=== PATIENT | male | born 1950 | race Caucasian/White ===

== ENCOUNTER 2025-01-04 15:31 | Emergency (ER) | payer MEDICARE, OTHER, SELFPAY ==
[2025-01-04 15:38] VITALS: BP 133/81; PULSE 65; RESP 18; TEMP 36.6; O2SAT 95; BMI 40.4
--- NOTE | 2025-01-04 15:51 | ECG_ITS ---
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 Measurements Intervals [place] Rate: 57 P: 2 MA: 184 QRS: -37 QRSD: 101 T: -1 QT: 411 QTc: 403 Interpretive Statements SINUS BRADYCARDIA LEFT AXIS DEVIATION [QRS AXIS < -30] PATTERN CONSISTENT WITH PULMONARY DISEASE No previous ECG available for comparison Electronically Signed On 01-07-2025 09:24:49 CDT by Antolin Ruff M.D. [email or web address]
--- NOTE | 2025-01-04 16:00 | ED_ITS ---
HPI - Dizziness 2 General: Chief Complaint: Dizziness Stated Complaint: vertigo/rash/back pain Time Seen by Provider: 01/04/25 16:00 History of Present Illness: HPI Narrative: 74-year-old male presents to the emergen cy room with 2 issues 1 he is having dizziness he was seen a couple days ago and given meclizine 40 no sooner he moves his head changes body position he gets dizziness to begin shortly after he moves. It will resolve with time. He has not any difficulty speech swallowing or vision. Second issue is he has a rash that is noticed on the left side of his abdomen. It is very limited rash it stops at the middle of his body. It is a burning type pain has been very pruritic initially had blistering does have opened up mostly and drained fluid. He had a low-grade fever yesterday he denies any cough or shortness of breath Associated symptoms: Denies chest pain or chills Related Data Previous Rx's ?Medication ?Instructions ?Recorded lorazepam 1 mg tablet (Ativan) 1 mg PO TID PRN dizzine ss #14 tabs 01/04/25 valacyclovir 1 gram tablet 1,000 mg PO TID 14 days #42 tabs 01/04/25 (Valtrex) Allergies Allergy/AdvReac Type Severity Reaction Status Date / Time No Known Allergies Allergy Verified 01/04/25 15:45 Review of Systems 2 Const: Reports: fever(s) (Low-grade subjective); Denies: chills Card: Denies: chest pain Resp: Denies: dyspnea GI: Denies: abdominal pain : Denies: dysuria, urinary frequency or urinary urgency Musc: Denies: neck pain or back pain Skin/Breast: Reports: rash Physical Exam 2 Const: COMMON NORMALS: no acute distress GENERAL APPEARANCE: cooperative and comfortable ORIENTATION/CONSCIOUSNESS: Yes awake, Yes oriented to person, Yes oriented to place and Yes oriented to time HENMT: COMMON NORMALS: normocephalic, atraumatic and hearing grossly normal bilaterally HEAD & SCALP: normocephalic and atraumatic Resp: COMMON NORMALS: normal respiratory effort, No retractions, No use of accessory muscles and clear to auscultation bilaterally AUSCULTATION: clear to auscultation bilaterally Cardio: COMMON NORMALS: regular rate, regular rhythm and No murmurs present (Cardio) RATE: regular rate RHYTHM: regular rhythm GI: COMMON NORMALS: Soft to palpation and No hepatosplenomegaly present A USCULTATION: Yes normoactive bowel sounds PALPATION: Yes Soft to palpation, No Tenderness to palpation present (GI), No Guarding due to palpation present (GI) and Yes No hepatosplenomegaly present Extremity: COMMON NORMALS: normal to inspection, capillary refill normal, no clubbing, cyanosis or edema, no calf tenderness and no pedal edema Neuro: SENSORIUM/ORIENTATION: Yes oriented to person, Yes oriented to place and Yes oriented to time Skin: OTHER: Dermatomal rash T7-8 distribution stops at the midline the back and anteriorly. Few vesicles laterally most of them have deroofed and are open no dried crust yet Course 2 Vital Signs: Vital signs: Vital Signs Temperature 98 F 01/04/25 15:38 Pulse Rate 55 L 01/04/25 17:12 Respiratory Rate 18 01/04/25 15:38 Blood Pressure 120/78 01/04/25 17:12 Pulse Oximetry 94 01/04/25 17:12 MDM - Dizziness Medical Decision Making Dizziness is reproducible with change in position of the head he does have some mild nystagmus to the right. Varicella rash also noted that began in the last few days we will start him on acyclovir gave him Ativan to use instead of active meclizine for the positional vertigo follow-up with primary care. Ambulates without difficulty Lab Data 01/04/25 16:19 01/04/25 16:19 Laboratory Results WBC 6.99 10^3/uL (3.29-11.43) 01/04/25 16:19 RBC 4.86 10^6/uL (3.85-5.65) 01/04/25 16:19 Hgb 13.50 g/dL (11.27-16.99) 01/04/25 16:19 Hct 43.1 % (37-53) 01/04/25 16:19 MCV 88.7 fl (82-101) 01/04/25 16:19 MCH 27.8 pg (27-33) 01/04/25 16:19 MCHC 31.3 g/dL (30-55) 01/04/25 16:19 RDW 13.9 % (12.1-15.1) 01/04/25 16:19 Plt Count 218 10^3/cmm (157-399) 01/04/25 16:19 MPV 10.5 fL (7.4-10.4) H 01/04/25 16:19 Neut % (Auto) 51.5 % 01/04/25 16:19 Lymph % (Auto) 26.2 % 01/04/25 16:19 [place] % (Auto) 12.9 % 01/04/25 16:19 Eos % (Auto) 7.7 % 01/04/25 16:19 Baso % (Auto) 1.1 % 01/04/25 16:19 Neut # (Auto) 3.60 10^3/uL (1.8-7.7) 01/04/25 16:19 Lymph # (Auto) 1.8 10^3/uL (0.8-4.8) 01/04/25 16:19 [place] # (Auto) 0.9 10^3/uL (0.2-0.9) 01/04/25 16:19 Eos # (Auto) 0.5 10^3/uL (0.0-0.8) 01/04/25 16:19 Baso # (Auto) 0.1 10^3/uL (0.0-0.1) 01/04/25 16:19 Nucleated RBC % (auto) 0 % 01/04/25 16:19 Nucleated RBCs # 0.0 /100WBC 01/04/25 16:19 Sodium 139 mmol/L (136-145) 01/04/25 16:19 Potassium 4.2 mmol/L (3.5-5.1) 01/04/25 16:19 Chloride 103 mmol/L (98-107) 01/04/25 16:19 Carbon Dioxide 26 mmol/L (22-29) 01/04/25 16:19 Anion Gap 14.2 (5-19) 01/04/25 16:19 BUN 22 mg/dL (8-23) 01/04/25 16:19 Creatinine 1.5 mg/dL (0.7-1.2) H 01/04/25 16:19 GFR Calculation Not Reportable 01/04/25 16:19 Glucose 103 mg/dL (65-115) 01/04/25 16:19 Calculated Osmolality 292 mOsm/kg (285-295) 01/04/25 16:19 Calcium 9.1 mg/dL (8.5-10.5) 01/04/25 16:19 Total Bilirubin 0.4 mg/dL (0.15-1.2) 01/04/25 16:19 AST 13 U/L (0-40) 01/04/25 16:19 ALT 10 U/L (0-41) 01/04/25 16:19 Alkaline Phosphatase 61 U/L (40-130) 01/04/25 16:19 Total Protein 7.2 g/dL (6.6-8.7) 01/04/25 16:19 Albumin 3.8 g/dL (3.5-5.2) 01/04/25 16:19 Globulin 3.4 g/dL (1.3-4.6) 01/04/25 16:19 No radiology studies performed this visit Discharge Plan Discharge Patient Disposition: Home Clinical Impression: Benign paroxysmal positional vertigo, Varicella zoster Condition: Stable Prescriptions: New valacyclovir [Valtrex] 1 gram tablet 1,000 mg PO TID 14 Days Qty: 42 0RF lorazepam [Ativan] 1 mg tablet 1 mg PO TID PRN (Reason: dizziness) Qty: 14 0RF Discharge Orders: Discharge ED (Routine); Ordered 01/04/25 Ordered By: Jose Grace Discharge Diet: Usual diet Discharge Activity: Increase activity as tolerated Patient Instructions: Shingles (ED), Benign Paroxysmal Positional Vertigo (ED), Opioid Safety, Pain Management Activity Restrictions/Additional Instructions: Thank you for choosing [facility] for your healthcare needs today. It is very important that you follow up as instructed or that you return to the Emergency Department should you have concerns or if your condition changes or worsens in any way. You are seen in the emergency room with complaints of a ration of dizziness. Your dizziness was reproducible with movement in the head there is no signs of stroke on exam. You can use Ativan 1 mg every 8 hours as needed to help with the dizziness. This will make you somewhat sedate. Additionally you were noted to have varicella-zoster the rash that is on your left side. Since we are within 72 hours we can treat you with the antivirals. The rash will continue to spread even after the start of the antivirals and then will turn black may take several weeks for it to resolve completely and you will likely have some discomfort in the area of the rash for up to a year afterwards if it the discomfort persist follow-up with your primary care doctor. Print Language: Albanian Coding Level of Care Code ED Fibre Technologist for Tej Parham NIH stroke score NIHSS Level Of Consciousness - 1a: 0 Level Of Consciousness Questions - 1b: Both Correct Level Of Consciousness Commands - 1c: Both Correct Best Gaze - 2: Normal Visual [place] - 3: No Visual Loss Facial Palsy - 4: Normal Motor Arm Right - 5: No Drift Motor Arm Left - 5: No Drift Motor Leg Right - 6: No Drift Motor Leg Left - 6: No Drift Limb Ataxia - 7: Absent Sensory - 8: Normal Best Language - 9: No Aphasia Dysarthia - 10: Normal Extinction And Inattention - 11: 0 Score Total Score: 0
[2025-01-04 16:24] LABS: Basophils # 0.1 10^3/uL (0.0-0.1); Basophils % 1.1 %; Eosinophils # 0.5 10^3/uL (0.0-0.8); Eosinophils % 7.7 %; Hematocrit 43.1 % (37-53); Lymphocytes # 1.8 10^3/uL (0.8-4.8); Lymphocytes % 26.2 %; Mean Corpuscular HGB Conc 31.3 g/dL (30-55); Mean Corpuscular Hemoglobin 27.8 pg (27-33); Mean Corpuscular Volume 88.7 fl (82-101); Mean Platelet Volume 10.5 fL (7.4-10.4); Monocytes # 0.9 10^3/uL (0.2-0.9); Monocytes % 12.9 %; Neutrophils % 51.5 %; Nucleated Red Blood Cells % 0 %; Platelet Count 218 10^3/cmm (157-399); Red Blood Count 4.86 10^6/uL (3.85-5.65); Red Cell Distribution Width 13.9 % (12.1-15.1); White Blood Count 6.99 10^3/uL (3.29-11.43)
[2025-01-04 16:48] LABS: Alanine Aminotransferase 10 U/L (0-41); Albumin Level 3.8 g/dL (3.5-5.2); Alkaline Phosphatase 61 U/L (40-130); Anion Gap 14.2 (5-19); Aspartate Amino Transferase 13 U/L (0-40); Blood Urea Nitrogen 22 mg/dL (8-23); Calcium 9.1 mg/dL (8.5-10.5); Carbon Dioxide 26 mmol/L (22-29); Chloride 103 mmol/L (98-107); Creatinine Clr Calc Pharmacy 61.5758; Globulin 3.4 g/dL (1.3-4.6); Glucose 103 mg/dL (65-115); Osmolality Calculated 292 mOsm/kg (285-295); Potassium 4.2 mmol/L (3.5-5.1); Sodium 139 mmol/L (136-145); Total Bilirubin 0.4 mg/dL (0.15-1.2); Total Protein 7.2 g/dL (6.6-8.7)
[2025-01-04 17:12] VITALS: BP 120/78; PULSE 55; O2SAT 94
== END 2025-01-04 17:13 | disposition home or self-care (01) ==
PROVIDERS: Emergency Medicine; Emergency Provider Family Medicine
DX: H81.10 Benign paroxysmal vertigo, unspecified ear (principal); B01.9 Varicella without complication
CPT/HCPCS: 80053; 85025; 93005; 99284

== ENCOUNTER 2025-01-23 09:40 | Inpatient (IN) | payer MEDICARE, OTHER, SELFPAY ==
[2025-01-23] VITALS (14 sets, daily range): BP systolic 117–151; BP diastolic 61–93; PULSE 58–95; RESP 14–22; TEMP 36.6–37.5; O2SAT 90–96; BMI 40.8
--- NOTE | 2025-01-23 09:49 | ECG_ITS ---
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 Measurements Intervals [place] Rate: 87 P: 44 AR: 176 QRS: -61 QRSD: 96 T: 16 QT: 354 QTc: 428 Interpretive Statements SINUS RHYTHM LOW QRS VOLTAGE IN PRECORDIAL LEADS [QRS DEFLECTION < 1.0 mV IN CHEST LEADS] S1-S2-S3 PATTERN, CONSISTENT WITH PULMONARY DISEASE, RVH, OR NORMAL VARIANT LEFT ANTERIOR FASCICULAR BLOCK [QRS AXIS <= -45, QR IN I, RS IN II] POSSIBLE ANTERIOR MYOCARDIAL INFARCTION , PROBABLY OLD [30 ms Q WAVE IN V3/V4, OR R < 0.2 mV IN V4] Compared to ECG 01/04/2025 16:11:51 Low QRS voltage now present Right ventricular hypertrophy now present Left anterior fascicular block now present Myocardial infarct finding now present.Sinus bradycardia no longer present Left-axis deviation no longer present Electronically Signed On 01-24-2025 18:10:27 CDT by Iris Mcgrath M.D. [id number]
--- NOTE | 2025-01-23 10:04 | W.ED.DIZZY ---
HPI - Dizziness General: Chief Complaint: Dizziness Stated Complaint: n/v, abd pain, dizzy Time Seen by Provider: 01/23/25 10:03 History of Present Illness: HPI Narrative: 74-year-old male who presents to the emergency room with complaints of nausea and dizziness is reproducible with turning his head to the right or rolling over to the right in bed he seen his primary care doctor earlier this week diagnosed with vertigo he has been referred for vestibular rehab. He also made comment about some right lower quadrant abdominal pain. Initially states he has had this for several weeks even a month or more. See notes below Associated symptoms: Denies chest pain or chills Related Data Home Medications ?Medication ?Instructions ?Recorded ?Confirmed amlodipine 10 mg tablet 10 mg PO DAILY 01/23/25 01/23/25 brimonidine 0.2 % eye drops 1 drp ophthalmic (eye) BID 01/23/25 01/23/25 dorzolamide 22.3 mg-timolol 6.8 1 drp ophthalmic (eye) BID 01/23/25 01/23/25 mg/mL eye drops latanoprost 0.005 % eye drops 1 drp ophthalmic (eye) BEDTIME 01/23/25 01/23/25 losartan 50 mg tablet 50 mg PO DAILY 01/23/25 01/23/25 meclizine 12.5 mg tablet 12.5 mg PO TID PRN Dizziness 01/23/25 01/23/25 simvastatin 20 mg tablet 20 mg PO BEDTIME 01/23/25 01/23/25 tamsulosin 0.4 mg capsule 0.4 mg PO BEDTIME 01/23/25 01/23/25 trazodone 100 mg tablet 100 mg PO BEDTIME 01/23/25 01/23/25 Previous Rx's ?Medication ?Instructions ?Recorded lorazepam 1 mg tablet (Ativan) 1 mg PO TID PRN dizziness #14 tabs 01/04/25 lorazepam 2 mg tablet (Ativan) 2 mg PO Q6H PRN dizziness or 01/23/25 vertigo #10 tabs Allergies Allergy/AdvReac Type Severity Reaction Status Date / Time No Known Allergies Allergy Verified 01/04/25 15:45 Review of Systems Const: Denies: fever(s) or chills Card: Denies: chest pain Resp: Denies: dyspnea GI: Reports: abdominal pain : Denies: dysuria, urinary frequency or urinary urgency Musc: Denies: neck pain or back pain Skin/Breast: Denies: rash Neuro: Reports: dizziness Physical Exam Const: COMMON NORMALS: no acute distress GENERAL APPEARANCE: cooperative and comfortable ORIENTATION/CONSCIOUSNESS: Yes awake, Yes oriented to person, Yes oriented to place and Yes oriented to time HENMT: COMMON NORMALS: normocephalic, atraumatic and hearing grossly normal bilaterally HEAD & SCALP: normocephalic and atraumatic Resp: COMMON NORMALS: normal respiratory effort, No retractions, No use of accessory muscles and clear to auscultation bilaterally AUSCULTATION: clear to auscultation bilaterally Cardio: COMMON NORMALS: regular rate, regular rhythm and No murmurs present (Cardio) RATE: regular rate RHYTHM: regular rhythm GI: COMMON NORMALS: No hepatosplenomegaly present AUSCULTATION: Yes normoactive bowel sounds PALPATION: Yes Tenderness to palpation present (GI) (Minimal right lower quadrant), No Guarding due to palpation present (GI) and Yes No hepatosplenomegaly present Extremity: COMMON NORMALS: normal to inspection, capillary refill normal, no clubbing, cyanosis or edema, no calf tenderness and no pedal edema Neuro: SENSORIUM/ORIENTATION: Yes oriented to person, Yes oriented to place and Yes oriented to time Skin: COMMON NORMALS: no rashes or lesions noted GENERAL SKIN EXAM: no rashes or lesions noted Course Vital Signs: Vital signs: Vital Signs Temperature 97.6 F 01/24/25 07:43 Pulse Rate 55 L 01/24/25 07:43 Respiratory Rate 16 01/24/25 07:43 Blood Pressure 131/73 01/24/25 07:43 Pulse Oximetry 91 01/24/25 07:43 Oxygen Delivery Me thod Nasal Cannula 01/24/25 07:43 Oxygen Flow Rate 1 01/24/25 03:29 MDM - Dizziness Medical Decision Making Once discharge patient reviewed positional vertigo without him up we could still reproduce it by looking to the left improved after he sat for period time. Went through all the medications the diagnosis and the plan the patient asked about abdominal pain. He had mentioned it to his earlier in conjunction with urination, his UA was negative. Patient states he had the abdominal pain for several weeks or a month. Family member that was with him stated that he just began complaining about it a few days ago. Initially thought his white count was related to his positional vertigo. We opted to go ahead and do a CT of his abdomen which showed acute appendicitis. On repeat exam he still is very minimal findings he complains of tenderness with no guarding or rebound abdominal pain with precautions. In any event CT is definitively positive. Discussed with the surgeon will admit orders written Medical Records I reviewed the patient's medical records. Lab Data I reviewed the patient's lab results. 01/23/25 10:25 01/23/25 10:25 Radiology Impressions Abdomen/Pelvis CT 01/23/25 12:32 IMPRESSION: 1. Distended measuring approximately 15 mm. Inflammation in the fat. Appendicitis. 2. No hydronephrosis or hydroureter. 3. Diverticulosis without evidence of diverticulitis. 4. The prostate gland is rather prominent and enlarged. Please correlate in regards to hyperplasia versus carcinoma. COMMENTS: Consistent with the [employer]'s Incidental Findings Committee white paper (J Am Dylan Radiol 2018): Any incidental renal lesion less than 1 cm or classified as too small to characterize, or any incidental cystic renal lesion characterized as simple-appearing, is likely benign. No follow-up imaging is recommended for these lesions per consensus recommendations based on imaging criteria. ADDENDUM: 01/23/25 [id number] The above was read and discussed at approximately 2:29 PM CDT on01/23/2025 with the attending physician , GORDON Kaufman. Laboratory Results WBC 15.77 10^3/uL (3.29-11.43) H 01/23/25 10:25 RBC 4.87 10^6/uL (3.85-5.65) 01/23/25 10:25 Hgb 13.80 g/dL (11.27-16.99) 01/23/25 10:25 Hct 43.2 % (37-53) 01/23/25 10:25 MCV 88.7 fl (82-101) 01/23/25 10:25 MCH 28.3 pg (27-33) 01/23/25 10:25 MCHC 31.9 g/dL (30-55) 01/23/25 10:25 RDW 15.1 % (12.1-15.1) 01/23/25 10:25 Plt Count 254 10^3/cmm (157-399) 01/23/25 10:25 MPV 10.3 fL (7.4-10.4) 01/23/25 10:25 Neut % (Auto) 82.1 % 01/23/25 10:25 Lymph % (Auto) 8.9 % 01/23/25 10:25 [place] % (Auto) 7.7 % 01/23/25 10:25 Eos % (Auto) 0.4 % 01/23/25 10:25 Baso % (Auto) 0.4 % 01/23/25 10:25 Neut # (Auto) 12.93 10^3/uL (1.8-7.7) H 01/23/25 10:25 Lymph # (Auto) 1.4 10^3/uL (0.8-4.8) 01/23/25 10:25 [place] # (Auto) 1.2 10^3/uL (0.2-0.9) H 01/23/25 10:25 Eos # (Auto) 0.1 10^3/uL (0.0-0.8) 01/23/25 10:25 Baso # (Auto) 0.1 10^3/uL (0.0-0.1) 01/23/25 10:25 Nucleated RBC % (auto) 0 % 01/23/25 10:25 Nucleated RBCs # 0.0 /100WBC 01/23/25 10:25 Sodium 143 mmol/L (136-145) 01/23/25 10:25 Potassium 4.0 mmol/L (3.5-5.1) 01/23/25 10:25 Chloride 107 mmol/L (98-107) 01/23/25 10:25 Carbon Dioxide 23 mmol/L (22-29) 01/23/25 10:25 Anion Gap 17.0 (5-19) 01/23/25 10:25 BUN 22 mg/dL (8-23) 01/23/25 10:25 Creatinine 1.4 mg/dL (0.7-1.2) H 01/23/25 10:25 GFR Calculation Not Reportable 01/23/25 10:25 Glucose 111 mg/dL (65-115) 01/23/25 10:25 Calculated Osmolality 300 mOsm/kg (285-295) H 01/23/25 10:25 Calcium 9.1 mg/dL (8.5-10.5) 01/23/25 10:25 Total Bilirubin 1.2 mg/dL (0.15-1.2) 01/23/25 10:25 AST 11 U/L (0-40) 01/23/25 10:25 ALT 9 U/L (0-41) 01/23/25 10:25 Alkaline Phosphatase 51 U/L (40-130) 01/23/25 10:25 Total Protein 7.1 g/dL (6.6-8.7) 01/23/25 10:25 Albumin 3.9 g/dL (3.5-5.2) 01/23/25 10:25 Globulin 3.2 g/dL (1.3-4.6) 01/23/25 10:25 Urine Color Yellow (Yellow) 01/23/25 11:20 Urine Appearance Clear (CLEAR) 01/23/25 11:20 Urine pH 6.0 (5-7) 01/23/25 11:20 Ur Specific [place] 1.020 (1.005-1.030) 01/23/25 11:20 Urine Protein Trace (Negative) A 01/23/25 11:20 Urine Glucose (UA) Negative (Normal) 01/23/25 11:20 Urine Ketones Negative (Negative) 01/23/25 11:20 Urine Blood Negative (Negative) 01/23/25 11:20 Urine Nitrate Negative (Negative) 01/23/25 11:20 Urine Bilirubin Negative (Negative) 01/23/25 11:20 Urine Urobilinogen 1.0 mg/dL (Negative) 01/23/25 11:20 Ur Leukocyte Esterase Negative (Negative) 01/23/25 11:20 Urine RBC 0-2 /hpf (0-2) 01/23/25 11:20 Urine WBC 0-5 /hpf (0-5) 01/23/25 11:20 Ur Squamous Epith Cells 0-5 /hpf (0-5) 01/23/25 11:20 Amorphous Sediment Not Reportable 01/23/25 11:20 Urine Bacteria None seen /hpf (NONE) 01/23/25 11:20 Hyaline Casts 0-4 /lpf H 01/23/25 11:20 All radiology interpretation(s) finalized by discharge Discharge Plan Discharge Patient Disposition: Admitted As Inpatient Admit Provider: Kashif Negrete Clinical Impression: Acute appendicitis, Benign paroxysmal positional vertigo Condition: Stable Discharge Diet: Usual diet Discharge Activity: Increase activity as tolerated Coding Level of Care Code ED Retail Financial Analyst for Tej Parham
[2025-01-23] MEDS: LORazepam 1 MG/0.5 ML injection 2 MG IVP (10:29)
[2025-01-23] MEDS: sodium chloride 0.9% 1,000 ML 999 ML IV (10:31)
[2025-01-23 10:39] LABS: Basophils # 0.1 10^3/uL (0.0-0.1); Basophils % 0.4 %; Eosinophils # 0.1 10^3/uL (0.0-0.8); Eosinophils % 0.4 %; Hematocrit 43.2 % (37-53); Lymphocytes # 1.4 10^3/uL (0.8-4.8); Lymphocytes % 8.9 %; Mean Corpuscular HGB Conc 31.9 g/dL (30-55); Mean Corpuscular Hemoglobin 28.3 pg (27-33); Mean Corpuscular Volume 88.7 fl (82-101); Mean Platelet Volume 10.3 fL (7.4-10.4); Monocytes # 1.2 10^3/uL (0.2-0.9); Monocytes % 7.7 %; Neutrophils # 12.93 10^3/uL (1.8-7.7); Neutrophils % 82.1 %; Nucleated Red Blood Cells % 0 %; Platelet Count 254 10^3/cmm (157-399); Red Blood Count 4.87 10^6/uL (3.85-5.65); Red Cell Distribution Width 15.1 % (12.1-15.1); White Blood Count 15.77 10^3/uL (3.29-11.43)
[2025-01-23 10:52] LABS: Alanine Aminotransferase 9 U/L (0-41); Albumin Level 3.9 g/dL (3.5-5.2); Alkaline Phosphatase 51 U/L (40-130); Aspartate Amino Transferase 11 U/L (0-40); Blood Urea Nitrogen 22 mg/dL (8-23); Calcium 9.1 mg/dL (8.5-10.5); Carbon Dioxide 23 mmol/L (22-29); Chloride 107 mmol/L (98-107); Creatinine Clr Calc Pharmacy 65.8515; Globulin 3.2 g/dL (1.3-4.6); Glucose 111 mg/dL (65-115); Osmolality Calculated 300 mOsm/kg (285-295); Sodium 143 mmol/L (136-145); Total Bilirubin 1.2 mg/dL (0.15-1.2); Total Protein 7.1 g/dL (6.6-8.7)
[2025-01-23 11:27] LABS: Bilirubin Urine Negative (Negative); Blood Urine Negative (Negative); Glucose Urine UA Negative (Normal); Ketones Urine Negative (Negative); Leukocyte Esterase Urine Negative (Negative); Nitrate Urine Negative (Negative); Protein Urine Trace (Negative); Urine Appearance Clear (CLEAR); Urine Color Yellow (Yellow)
[2025-01-23 11:32] LABS: Add Urine Microscopic? YES; Bacteria Urine None Seen /hpf; Hyaline Casts Urine 0-4 /lpf; RBC Urine 0-2 /hpf (0-2); Squamous Epithelial Cell Urine 0-5 /hpf (0-5); WBC Urine 0-5 /hpf (0-5)
[2025-01-23 11:36] LABS: Add Urine Culture? No
--- NOTE | 2025-01-23 12:32 | CTR_ITS ---
PROCEDURE INFORMATION: Exam: CT Abdomen And Pelvis Without Contrast Exam date and time: 01/23/2025 12:54 PM Age: 74 years old Clinical indication: Abdominal pain; Localized; Right lower quadrant (rlq); Prior surgery; Surgery date: 6+ months; Surgery type: Gb; Abd pain ; rlq wo trauma new onset. PT states HX of kidney stones TECHNIQUE: Imaging protocol: Computed tomography of the abdomen and pelvis without contrast. Radiation optimization: All CT scans at this facility use at least one of these dose optimization techniques: automated exposure control; mA and/or kV adjustment per patient size (includes targeted exams where dose is matched to clinical indication); or iterative reconstruction. COMPARISON: No relevant prior studies available. RADIATION DOSE METRICS: Total DLP (mGy-cm): 1236.76 FINDINGS: Lungs: visualized portions of the lung bases normal. Liver: Normal. No mass. Gallbladder and biliary ducts: Surgical clips are present in the region of the gallbladder fossa. Pancreas: mild atrophy of the pancreas. Spleen: Normal. No splenomegaly. Adrenal glands: Normal. No mass. Kidneys and ureters: No hydronephrosis or hydroureter. Small renal calcifications largest on the right of approximately 2 mm and on the left of approximately 3 mm. Renal cysts bilaterally. Non simple cyst parapelvic region on the left of approximately 3 cm. Follow-up ultrasound versus contrast-enhanced CT. Non emergent Stomach and bowel: Diverticulosis without evidence of diverticulitis. Moderate amount stool within the large bowel. The terminal ileum and cecum appear grossly normal. Appendix: Distended measuring approximately 15 mm. Inflammation in the fat. Appendicitis. Intraperitoneal space: Unremarkable. No free air. No significant fluid collection. Vasculature: Unremarkable. No abdominal aortic aneurysm. Lymph nodes: Unremarkable. No enlarged lymph nodes. Urinary bladder: Unremarkable as visualized. Reproductive: The prostate gland is rather prominent and enlarged. Please correlate in regards to hyperplasia versus carcinoma. Bones/joints: Moderate degenerative disc disease. Soft tissues: Soft tissues are unremarkable. CT/CT abdomen pelvis wo con [id number] IMPRESSION: 1. Distended measuring approximately 15 mm. Inflammation in the fat. Appendicitis. 2. No hydronephrosis or hydroureter. 3. Diverticulosis without evidence of diverticulitis. 4. The prostate gland is rather prominent and enlarged. Please correlate in regards to hyperplasia versus carcinoma. COMMENTS: Consistent with the [employer]'s Incidental Findings Committee white paper (J Am Dylan Radiol 2018): Any incidental renal lesion less than 1 cm or classified as too small to characterize, or any incidental cystic renal lesion characterized as simple-appearing, is likely benign. No follow-up imaging is recommended for these lesions per consensus recommendations based on imaging criteria.
[2025-01-23] MEDS: piperacillin-tazobactam 3.375 GM in sodium chloride 0.9% (plus) 50 ML IV (15:02)
--- NOTE | 2025-01-23 15:04 | P.HP_ITS ---
Providers/Chief Complaint 2 Primary Care Provider: Malachi Chopra MD Chief Complaint: n/v, abd pain, dizzy History of Present Illness Giuseppe Wadsworth is a 74 year old male who presents with appendicitis. Patient has had pain for several weeks. No n/v/f/c. Leukocitosis present. CT consistent with acute appendicitis, no abscess/perforation. Medications/Allergies Home Medications ?Medication ?Instructions ?Recorded ?Confirmed ?Last Taken ?Type lorazepam 1 mg tablet (Ativan) 1 mg PO TID PRN dizzine ss #14 tabs 01/04/25 01/23/25 Unknown Rx amlodipine 10 mg tablet 10 mg PO DAILY 01/23/25 05/09/2901/22/25 History brimonidine 0.2 % eye drops 1 drp ophthalmic (eye) BID 01/23/25 01/23/25 01/22/25 History dorzolamide 22.3 mg-timolol 6.8 1 drp ophthalmic (eye) BID 01/23/25 01/23/25 01/22/25 History mg/mL eye drops latanoprost 0.005 % eye drops 1 drp ophthalmic (eye) B EDTIME 01/23/25 01/23/25 01/22/25 History lorazepam 2 mg tablet (Ativan) 2 mg PO Q6H PRN dizzine ss or 01/23/25 Unknown Rx vertigo #10 tabs losartan 50 mg tablet 50 mg PO DAILY 01/23/25 05/09/2901/22/25 History meclizine 12.5 mg tablet 12.5 mg PO TID PRN Dizziness 01/23/25 01/23/25 01/22/25 History simvastatin 20 mg tablet 20 mg PO BEDTIME 01/23/2501/21/25 History tamsulosin 0.4 mg capsule 0.4 mg PO BEDTIME 01/23/25 0 01/23/25 01/21/25 History trazodone 100 mg tablet 100 mg PO BEDTIME 01/23/25 0 01/23/25 01/22/25 History Allergies Allergy/AdvReac Type Severity Reaction Status Date / Time No Known Allergies Allergy Verified 01/04/25 15:45 Vitals/I&O/Wt Last Vital Signs Temp 98.0 F 01/23/25 09:45 Pulse 62 01/23/25 12:31 Resp 18 01/23/25 09:45 BP 151/93 01/23/25 12:31 Pulse Ox 94 01/23/25 12:31 01/23/25 01/23/25 01/23/25 06:59 14:59 22:59 Intake Total 1000 / 1000 Balance 1000 / 1000 Weight last 48 hrs Weight 289 lb Physical Exam 2 Narrative: rrr unlabored breathing ra abdomen soft, TTP RLQ, mildly distended Data 01/23/25 10:25 01/23/25 10:25 A&P Assessment and plan (1) Acute appendicitis: Plan 74yo male who presents with appendicitis. Discussed risk and benefits and patient agrees to proceed with laparoscopic appendectomy, possible open. PDMP PDMP Reviewed: Not Reviewed Attestations 2 Medical Necessity Statement*: IV pain meds, IV antibiotics, IVFs Coding Level of Care Code 31024 Diagnoses Acute appendicitis K35.80
--- NOTE | 2025-01-23 15:43 | ANES.PREANE2 ---
Pre-Anesthetic Assessment Height/Weight: Height 5 ft 11 in Weight 289 lb Temp Pulse Resp BP Pulse Ox 98.0 F 62 18 151/93 94 01/23/25 09:45 01/23/25 12:31 01/23/25 09:45 01/23/25 12:31 01/23/25 12:31 Preop Diagnosis: Acute appendicitis Operation Date: 01/23/25 15:30 Proposed Procedures p Laparoscopic Appendectomy(Not Applicable) - Kashif Negrete MD Was Beta Shannon taken within 24 hours: N/A Was Clonidine taken within 24 hours: N/A Social No alcohol and No tobacco Exam alert, oriented x 3, clear to auscultation bilaterally and regular rate & rhythm Airway Submandibular: within normal limits Cervical ROM: within normal limits Mallampati: Class III Dentition: full Anesthetic Plan ASA status: 3 Anesthesia: General Other: Patient with acute appendicitis No prior issues with anesthesia N.p.o. 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 BMI 40 Labs reviewed and acceptable for procedure, leukocytosis noted Plan for GETA Medications/Allergies Home Medications ?Medication ?Instructions ?Recorded ?Confirmed ?Last Taken ?Type lorazepam 1 mg tablet (Ativan) 1 mg PO TID PRN dizziness #14 tabs 01/04/25 01/23/25 Unknown Rx amlodipine 10 mg tablet 10 mg PO DAILY 01/23/25 01/23/25 01/22/25 History brimonidine 0.2 % eye drops 1 drp ophthalmic (eye) BID 01/23/25 01/23/25 01/22/25 History dorzolamide 22.3 mg-timolol 6.8 1 drp ophthalmic (eye) BID 01/23/25 01/23/25 01/22/25 History mg/mL eye drops latanoprost 0.005 % eye drops 1 drp ophthalmic (eye) BEDTIME 01/23/25 01/23/25 01/22/25 History lorazepam 2 mg tablet (Ativan) 2 mg PO Q6H PRN dizziness or 01/23/25 Unknown Rx vertigo #10 tabs losartan 50 mg tablet 50 mg PO DAILY 01/23/25 01/23/25 01/22/25 History meclizine 12.5 mg tablet 12.5 mg PO TID PRN Dizziness 0501/23/25 01/22/25 History simvastatin 20 mg tablet 20 mg PO BEDTIME 01/23/25 01/23/25 01/21/25 History tamsulosin 0.4 mg capsule 0.4 mg PO BEDTIME 01/23/25 01/23/25 01/21/25 History trazodone 100 mg tablet 100 mg PO BEDTIME 01/23/25 01/23/25 01/22/25 History Allergies Allergy/AdvReac Type Severity Reaction Status Date / Time No Known Allergies Allergy Verified 01/04/25 15:45 Data Anesthesia 01/23/25 10:25 01/23/25 10:25 Short CBC 01/23/25 Range/Units 10:25 WBC 15.77 H (3.29-11.43) 10^3/uL Hgb 13.80 (11.27-16.99) g/dL Hct 43.2 (37-53) % MCV 88.7 (82-101) fl Plt Count 254 (157-399) 10^3/cmm Neut % (Auto) 82.1 % Neut # (Auto) 12.93 H (1.8-7.7) 10^3/uL BMP 01/23/25 10:25 Sodium 143 Potassium 4.0 Chloride 107 Carbon Dioxide 23 BUN 22 Creatinine 1.4 H Glucose 111 Calcium 9.1 Liver Function 01/23/25 Range/Units 10:25 Total Bilirubin 1.2 (0.15-1.2) mg/dL AST 11 (0-40) U/L ALT 9 (0-41) U/L Alkaline Phosphatase 51 (40-130) U/L Albumin 3.9 (3.5-5.2) g/dL Urine 01/23/25 Range/Units 11:20 Urine Color Yellow (Yellow) Urine Appearance Clear (CLEAR) Urine pH 6.0 (5-7) Ur Specific [place] 1.020 (1.005-1.030) Urine Protein Trace A (Negative) Urine Glucose (UA) Negative (Normal) Urine Ketones Negative (Negative) Urine Nitrate Negative (Negative) Urine Bilirubin Negative (Negative) Ur Leukocyte Esterase Negative (Negative) Urine RBC 0-2 (0-2) /hpf Urine WBC 0-5 (0-5) /hpf
[2025-01-23] MEDS: sodium chloride 0.9% 1,000 ML 30 ML IV (16:08)
--- NOTE | 2025-01-23 17:12 | P.OP_ITS ---
Operative Report Date of procedure: January 23, 2025 Pre-op diagnosis: Appendicitis Post-op diagnosis: same Post-op findings: Appendicitis with a periappendiceal abscess Procedure done: Laparoscopic appendectomy Implants: N/A Specimens removed/disposition: Appendix sent to pathology Pathology: Appendix sent to pathology Surgeon: Kashif Negrete MD Optical Laboratory Manager: N/A Anesthesia: General Estimated blood loss (mL): 10 Complications: N/A Findings: Appendicitis with periappendiceal abscess. Washed out right paracolic gutter. Staple line on cecum intact. Adequate hemostasis achieved. Condition: stable Disposition: observation Brief History: 74-year-old male who presented with appendicitis. Discussed risk and benefits and patient agreed to proceed with laparoscopic appendectomy possible open. Procedure: After having a discussion about risks and benefits and obtaining consent, patient was brought to the OR. SCDs were functioning prior to intubation. Zosyn was given 45min prior to incision. General anesthesia was administered. Arms were tucked. A corral catheter was placed. The abdomen was prepped and draped in the usual sterile fashion. Insufflation was achieved using gassless entry using a 5mm Optiviewport at Bacon's point (15mmHg). A 5mm port was placed at the umbilicus using an optical view port. Then a 5mm port was placed suprapubically, and a 12mm port was placed in the left lower quadrant. The abdomen was inspected and no injuries were noted. Patient was placed in Trendelenburg and the table was rotated left. Using atraumatic bowel graspers the small bowel was placed on the left side of the abdomen, revealing the cecum and inflammed appendix and a periappendiceal abscess. The appendix was dissected off the pelvic side wall bluntly. The appendix was grasped and the mesoappendix was taken down using a L igasure. The base of the appendix was found to be intact. I proceeded to staple off the appendix at its base using a laparoscopic stapler with a blue load. The appendix was then retrieved using an endocatch bag. The staple line on the cecum was inspected, and found to be intact. I proceeded to close the 12mm port using an 0 vicryl with a UR6 needle under laparosopic visualization. The abdomen was desufflated and skin was closed using 4-0 monocryl and surgical glue. Corral was removed at the end of the case. The patient woke up from anesthesia and was transferred to PACU without any complications
--- NOTE | 2025-01-23 17:38 | SUR.PHASEI ---
1735-report received from Yvon Bro RN in PACU. RN assumed patient care.
--- NOTE | 2025-01-23 17:51 | ANE.PACU2 ---
Inpatient post-anesthesia follow up: Airway intact: Yes Vital signs: Temperature 98.5 F Pulse Rate 56 Respiratory Rate 16 Blood Pressure 108/58 Pulse Oximetry 93 Oxygen Delivery Me thod Room Air Oxygen Flow Rate 1 Fraction of Inspir ed Oxygen Hydration adequate: Yes Nausea and vomiting: No Pain level: 1 Mental status: Baseline
[2025-01-23] MEDS: sodium chloride 0.9% 1,000 ML 100 ML IV ×2 (18:32→21:52)
[2025-01-23] MEDS: tamsulosin 0.4 mg Capsule PO (21:50)
[2025-01-23] MEDS: trazodone 100 mg Tablet PO (21:50)
[2025-01-24 01:00] VITALS: BP 101/55; PULSE 63; RESP 16; TEMP 36.8; O2SAT 92
[2025-01-24 03:00] VITALS: BP 122/74; PULSE 64; RESP 16; TEMP 36.8; O2SAT 91
[2025-01-24 03:29] VITALS: O2SAT 92
[2025-01-24 06:34] LABS: Glucose Point of Care 141 mg/dL (70-110)
[2025-01-24 07:43] VITALS: BP 131/73; PULSE 55; RESP 16; TEMP 36.4; O2SAT 91
--- NOTE | 2025-01-24 10:16 | P.PN_ITS ---
Subjective 2 Subjective: Minimal abdominal pain Tolerating regular diet Vitals/I&O/Wt Last Vital Signs Temp 97.6 F 01/24/25 07:43 Pulse 55 L 01/24/25 07:43 Resp 16 01/24/25 07:43 BP 131/73 01/24/25 07:43 Pulse Ox 91 01/24/25 07:43 O2 Del Method Nasal Cannula 01/24/25 07:43 O2 Flow Rate 1 01/24/25 03:29 01/23/25 01/24/25 01/24/25 22:59 06:59 14:59 Intake Total 928.333 / 1928.333 30 / 1958.333 360 / 360 Output Total 405 / 405 Balance 523.333 / 1523.333 30 / 1553.333 360 / 360 Weight last 48 hrs Weight 292 lb 6.4 oz Weight 289 lb Physical Exam 2 Narrative: Chest: Unlabored breathing room air. No lymphadenopathy. Heart: Regular rate and rhythm. Abdomen: Soft, appropriately tender, nondistended. Incisions intact Data 01/23/25 10:25 01/23/25 10:25 A&P Assessment and plan (1) Acute appendicitis: Plan 74-year-old male status post lap appendectomy. Doing well. Cleared for discharge. PDMP PDMP Reviewed: Last Reviewed 01/24/25 11:15 EDT by Kashif Negrete MD Attestations 2 Medical Necessity Statement*: IV fluids, IV pain meds, IV antibiotics Coding Level of Care Code 07210 Diagnoses Acute appendicitis K35.80
--- NOTE | 2025-01-24 10:17 | PM.DCS ---
Discharge Providers Date of Admission: 01/23/25 16:25 Date of Discharge: January 24, 2025 Attending Provider at Admission: Kashif Negrete MD Attending Provider at Discharge: Ksahif Negrete MD Primary Care Provider: Malachi Chopra MD Diagnoses at Discharge Discharge Diagnosis (1) Acute appendicitis: Status: Acute Reason for Visit Reason for Visit: n/v, abd pain, dizzy Hospital Course Hospital Course 74-year-old male found to have acute appendicitis. Taken to OR for laparoscopic appendectomy. Surgery was unremarkable although he did have a periappendiceal abscess.. Discharged the following day. Physical Exam Narrative: Chest: Unlabored breathing room air. No lymphadenopathy. Heart: Regular rate and rhythm. Abdomen: Soft, appropriately tender, nondistended. No masses or lymphadenopathy. Incisions clean dry intact Discharge Data Studies Completed and Pending Completed Studies During Hospitalization Category Date Time Status CT abdomen pelvis wo con [id number] Stat Cat Scan 01/23/25 12:32 Completed Pending at discharge Category Date Time Status Pathology: Surgical [PTH] Routine Pth 01/23/25 17:37 Received Radiology Impressions Abdomen/Pelvis CT 01/23/25 12:32 IMPRESSION: 1. Distended measuring approximately 15 mm. Inflammation in the fat. Appendicitis. 2. No hydronephrosis or hydroureter. 3. Diverticulosis without evidence of diverticulitis. 4. The prostate gland is rather prominent and enlarged. Please correlate in regards to hyperplasia versus carcinoma. COMMENTS: Consistent with the [employer]'s Incidental Findings Committee white paper (J Am Dylan Radiol 2018): Any incidental renal lesion less than 1 cm or classified as too small to characterize, or any incidental cystic renal lesion characterized as simple-appearing, is likely benign. No follow-up imaging is recommended for these lesions per consensus recommendations based on imaging criteria. ADDENDUM: 01/23/25 1430 The above was read and discussed at approximately 2:29 PM CDT on01/23/2025 with the attending physician , GORDON Kaufman. Laboratory Results WBC 15.77 10^3/uL (3.29-11.43) H 01/23/25 10:25 RBC 4.87 10^6/uL (3.85-5.65) 01/23/25 10:25 Hgb 13.80 g/dL (11.27-16.99) 01/23/25 10:25 Hct 43.2 % (37-53) 01/23/25 10:25 MCV 88.7 fl (82-101) 01/23/25 10:25 MCH 28.3 pg (27-33) 01/23/25 10:25 MCHC 31.9 g/dL (30-55) 01/23/25 10:25 RDW 15.1 % (12.1-15.1) 01/23/25 10:25 Plt Count 254 10^3/cmm (157-399) 01/23/25 10:25 MPV 10.3 fL (7.4-10.4) 01/23/25 10:25 Neut % (Auto) 82.1 % 01/23/25 10:25 Lymph % (Auto) 8.9 % 01/23/25 10:25 [place] % (Auto) 7.7 % 01/23/25 10:25 Eos % (Auto) 0.4 % 01/23/25 10:25 Baso % (Auto) 0.4 % 01/23/25 10:25 Neut # (Auto) 12.93 10^3/uL (1.8-7.7) H 01/23/25 10:25 Lymph # (Auto) 1.4 10^3/uL (0.8-4.8) 01/23/25 10:25 [place] # (Auto) 1.2 10^3/uL (0.2-0.9) H 01/23/25 10:25 Eos # (Auto) 0.1 10^3/uL (0.0-0.8) 01/23/25 10:25 Baso # (Auto) 0.1 10^3/uL (0.0-0.1) 01/23/25 10:25 Nucleated RBC % (auto) 0 % 01/23/25 10:25 Nucleated RBCs # 0.0 /100WBC 01/23/25 10:25 Sodium 143 mmol/L (136-145) 01/23/25 10:25 Potassium 4.0 mmol/L (3.5-5.1) 01/23/25 10:25 Chloride 107 mmol/L (98-107) 01/23/25 10:25 Carbon Dioxide 23 mmol/L (22-29) 01/23/25 10:25 Anion Gap 17.0 (5-19) 01/23/25 10:25 BUN 22 mg/dL (8-23) 01/23/25 10:25 Creatinine 1.4 mg/dL (0.7-1.2) H 01/23/25 10:25 GFR Calculation Not Reportable 01/23/25 10:25 Glucose 111 mg/dL (65-115) 01/23/25 10:25 POC Glucose 141 mg/dL (70-110) H 01/24/25 06:26 Calculated Osmolality 300 mOsm/kg (285-295) H 01/23/25 10:25 Calcium 9.1 mg/dL (8.5-10.5) 01/23/25 10:25 Total Bilirubin 1.2 mg/dL (0.15-1.2) 01/23/25 10:25 AST 11 U/L (0-40) 01/23/25 10:25 ALT 9 U/L (0-41) 01/23/25 10:25 Alkaline Phosphatase 51 U/L (40-130) 01/23/25 10:25 Total Protein 7.1 g/dL (6.6-8.7) 01/23/25 10:25 Albumin 3.9 g/dL (3.5-5.2) 01/23/25 10:25 Globulin 3.2 g/dL (1.3-4.6) 01/23/25 10:25 Urine Color Yellow (Yellow) 01/23/25 11:20 Urine Appearance Clear (CLEAR) 01/23/25 11:20 Urine pH 6.0 (5-7) 01/23/25 11:20 Ur Specific [place] 1.020 (1.005-1.030) 01/23/25 11:20 Urine Protein Trace (Negative) A 01/23/25 11:20 Urine Glucose (UA) Negative (Normal) 01/23/25 11:20 Urine Ketones Negative (Negative) 01/23/25 11:20 Urine Blood Negative (Negative) 01/23/25 11:20 Urine Nitrate Negative (Negative) 01/23/25 11:20 Urine Bilirubin Negative (Negative) 01/23/25 11:20 Urine Urobilinogen 1.0 mg/dL (Negative) 01/23/25 11:20 Ur Leukocyte Esterase Negative (Negative) 01/23/25 11:20 Urine RBC 0-2 /hpf (0-2) 01/23/25 11:20 Urine WBC 0-5 /hpf (0-5) 01/23/25 11:20 Ur Squamous Epith Cells 0-5 /hpf (0-5) 01/23/25 11:20 Amorphous Sediment Not Reportable 01/23/25 11:20 Urine Bacteria None seen /hpf (NONE) 01/23/25 11:20 Hyaline Casts 0-4 /lpf H 01/23/25 11:20 Vitals Last Vital Signs Temp 97.6 F 01/24/25 07:43 Pulse 55 L 01/24/25 07:43 Resp 16 01/24/25 07:43 BP 131/73 01/24/25 07:43 Pulse Ox 91 01/24/25 07:43 O2 Del Method Nasal Cannula 01/24/25 07:43 O2 Flow Rate 1 01/24/25 03:29 Discharge Plan Discharge Patient Disposition: Home Condition: Stable Prescriptions: New lorazepam [Ativan] 2 mg tablet 2 mg PO Q6H PRN (Reason: dizziness or vertigo) Qty: 10 0RF oxycodone 5 mg tablet 5 mg PO Q6H PRN (Reason: pain) 5 Days Qty: 10 0RF No Action lorazepam [Ativan] 1 mg tablet 1 mg PO TID PRN (Reason: dizziness) Qty: 14 0RF losartan 50 mg tablet 50 mg PO DAILY latanoprost 0.005 % drops 1 drp ophthalmic (eye) BEDTIME meclizine 12.5 mg tablet 12.5 mg PO TID PRN (Reason: Dizziness) tamsulosin 0.4 mg capsule 0.4 mg PO BEDTIME trazodone 100 mg tablet 100 mg PO BEDTIME amlodipine 10 mg tablet 10 mg PO DAILY simvastatin 20 mg tablet 20 mg PO BEDTIME brimonidine 0.2 % drops 1 drp ophthalmic (eye) BID dorzolamide-timolol 22.3-6.8 mg/mL drops 1 drp ophthalmic (eye) BID Discharge Orders: Discharge Order (Routine); Ordered 01/24/25 Ordered By: Kashif Negrete Referrals: Kashif Negrete MD [Physician, General Surgery] - 2 weeks Malachi Chopra MD [Primary Care Provider, Family Practice] Discharge Diet: Usual diet Discharge Activity: Increase activity as tolerated Patient Instructions: Appendicitis (GEN), Opioid Safety, Pain Management Activity Restrictions/Additional Instructions: 1. No heavy exercise or lifting greater than 10lbs for 6 weeks. 2. No pools, saunas, bathtubs for [address] if taking narcotics. 4. You may take over the counter tylenol 650mg every 6 hrs and ibuprofen 400mg every 6 hrs as needed for 5 days in addition to the oxycodone. 5. Follow-up in clinic in 2 weeks. 6. Call the office if you have any concerns or questions. Discharge Attestations Time Spent in Discharge Care*: greater than 30 min Quality Metrics Clinical Quality Measures [ No reported AMI, CVA or VTE this stay] Coding Level of Care Code Acute Code for [facility] Diagnoses Acute appendicitis K35.80
[2025-01-24 11:16] VITALS: BP 108/58; PULSE 56; RESP 16; TEMP 36.9; O2SAT 93
[2025-01-24 11:40] VITALS: BP 108/58; PULSE 56; O2SAT 93
== END 2025-01-24 11:30 | disposition home or self-care (01) | DRG 399 ==
LOC: ER 14:52 → OR 15:00 → MEDSURG 16:26
PROVIDERS: Admitting Provider Student in an Organized Health Care Education/Training Program; Emergency Provider Family Medicine; PCP Family Medicine; Visit Provider Student in an Organized Health Care Education/Training Program
PROC: 0DTJ4ZZ Resection of Appendix, Percutaneous Endoscopic Approach (ICD-10-PCS; CPT 44970; principal; 2025-01-23 15:30)
DX: K35.33 Acute appendicitis with perforation, localized peritonitis, and gangrene, with abscess (principal); H81.10 Benign paroxysmal vertigo, unspecified ear; Z79.899 Other long term (current) drug therapy
CPT/HCPCS: 36416; 74176; 80053; 81001; 82962; 85025; 88304; 93005; 96365; 96375; 99285; J1100; J2060; J2405; J2543; J2704; J3010; J7030; J9999

== ENCOUNTER → 2025-02-11 14:05 | Outpatient (BNVA) | payer MEDICARE, OTHER, SELFPAY | PROVIDERS: PCP Family Medicine; Visit Provider Student in an Organized Health Care Education/Training Program | DX: K35.80 Unspecified acute appendicitis (principal) | CPT/HCPCS: 99024 ==